=== PATIENT | female | born 1945 | race Caucasian/White ===

== ENCOUNTER 2018-01-02 11:10 | Emergency (ER) | payer MEDICARE, BC ==
[~2018-01-02] VITALS: Ht 157.5 cm; Wt 66.7 kg
--- NOTE | 2018-01-02 11:10 | NUR ---
BB FAMILY FOR FEELING WEAK, PROBLEMS STANDING UP, WALKING X YESTERDAY. NAD NOTED. PER FAMILY PT LEFT SIDED WEAKNESS X 2 DAYS. PT VSS. AAO X4, AMBULATORY. DR LOREDO AT BEDSIDE FOR EVAL.
[2018-01-02 11:19] VITALS: BP 107/69
--- NOTE | 2018-01-02 11:48 | NUR ---
CALLED 'S TELESTROKE LINE, SPOKE WITH IRAM, PRESENTED PT, AWAITING CALL BACK FROM (NEUROLOGIST).
[2018-01-02] MEDS ORDERED: IOHEXOL-350 100 ML VIAL IV ONE (11:50)
--- NOTE | 2018-01-02 11:50 | NUR ---
PT TO CT
[2018-01-02] MEDS ORDERED: IV NS 0.9% 100 ML IV ONE (11:51)
[2018-01-02 11:55] LABS: BASOPHILS % (AUTO) 0.9 % (0.0-2.0); EOSINOPHILS % (AUTO) 0.1 % (0.0-6.0); HEMATOCRIT 40 % (33-45); HEMOGLOBIN 13.7 g/dL (11.5-14.8); LYMPHOCYTES # (AUTO) 0.3 /CMM (0.8-4.8); MEAN CORPUSCULAR HEMOGLOBIN 31 PG (26.0-33.0); MEAN CORPUSCULAR HGB CONC 35 g/dl (31.0-36.0); MEAN CORPUSCULAR VOLUME 88 fL (82-100); MONOCYTES # (AUTO) 0.4 /CMM (0.1-1.30); MONOCYTES % (AUTO) 7.4 % (2.0-12.0); NEUTROPHILS # (AUTO) 4.2 /CMM (1.8-8.9); NEUTROPHILS % (AUTO) 85.6 % (43.0-81.0); PLATELET COUNT (AUTO) 134 /CMM (150-450); RDW COEFFICIENT OF VARIATION 12.3 (11.5-15.0); WHITE BLOOD COUNT (AUTO) 4.9 K/uL (4.3-11.0)
--- NOTE | 2018-01-02 11:59 | NUR ---
PT RETURNED FROM CT
[2018-01-02 12:04] LABS: CALCIUM, SERUM 8.2 mg/dL (8.5-10.1); CARBON DIOXIDE 28 mmol/L (21-32); CHLORIDE 103 mmol/L (98-107); CREATININE 0.9 mg/dL (0.6-1.3); GLUCOSE 121 mg/dL (74-106); POTASSIUM 3.7 mmol/L (3.5-5.1); SODIUM SERUM 138 mmol/L (136-145); UREA NITROGEN, BLOOD 14 mg/dL (7-18)
[2018-01-02 12:08] LABS: INR 1.01 (0.85-1.15)
[2018-01-02 12:10] LABS: ALANINE AMINOTRANSFERASE 46 U/L (12-78); ALBUMIN 3.3 g/dL (3.4-5.0); ALKALINE PHOSPHATASE 56 U/L (46-116); ASPARTATE AMINOTRANSFERASE 32 U/L (15-37); BILIRUBIN,DIRECT 0.1 mg/dL (0.0-0.2); BILIRUBIN,TOTAL 0.6 mg/dL (0.2-1.0); TOTAL PROTEIN, SERUM 6.5 g/dL (6.4-8.2)
[2018-01-02 12:12] LABS: TROPONIN I < 0.017 ng/mL (0.00-0.056)
[2018-01-02] MEDS ORDERED: ASPIRIN 325 MG TABLET ONE (12:42)
[2018-01-02 12:53] LABS: CHOLESTEROL 202 mg/dL (<200); HDL CHOLESTEROL 89 mg/dL (40-60); LDL 107 mg/dL (0-99); TRIGLYCERIDES 45 mg/dL (30-150)
[2018-01-02] MEDS ORDERED: ASPIRIN 325 MG TABLET PO ONE (13:00)
--- NOTE | 2018-01-02 13:29 | NUR ---
Patient does not wish to proceed with medical care recommended by Dr. vegas. Patient given information related to possible complications, up to and including , which could occur as a result of leaving the hospital at this time. Patient verbalizes understanding of risks involved due to leaving against medical advice. Patient has signed AMA form. pt leaving with family in stable condition
[2018-01-02 13:52] LABS: APPEARANCE,URINE Clear (CLEAR); BILIRUBIN,URINE Negative (NEGATIVE); BLOOD, URINE Moderate Ery/uL (NEGATIVE); COLOR,URINE Yellow (YELLOW); KETONES,URINE 15 (NEGATIVE); LEUKOCYTE ESTERASE ,URINE Negative (NEGATIVE); NITRITE, URINE Negative (NEGATIVE); PROTEIN,URINE Negative (NEGATIVE); UGLUCOSE Negative (NEGATIVE); UROBILINOGEN,URINE 0.2 EU/dL (0.2)
[2018-01-02 14:03] LABS: BACTERIA,URINE Rare /HPF (None Seen); SQUAMOUS EPITHELIAL CELL,UR Rare /HPF (None Seen); WBC,URINE 0-2 /HPF (0-3)
== END 2018-01-02 13:31 | disposition left against medical advice (07) ==
LOC: ER 11:12
DX: R27.8 Other lack of coordination (principal); R53.1 Weakness; Z79.82 Long term (current) use of aspirin; Z88.0 Allergy status to penicillin; Z88.2 Allergy status to sulfonamides; Z88.8 Allergy status to other drugs, medicaments and biological substances; Z85.841 Personal history of malignant neoplasm of brain; Z53.20 Procedure and treatment not carried out because of patient's decision for unspecified reasons
CPT/HCPCS: 36415; 70450; 70496; 70498; 71045; 80048; 80061; 80076; 81001; 84484; 85025; 85730; 93005; 99285; A4606; J7030; Q9967; 81000-TC; Z7610